=== PATIENT | female | born 1955 | race Caucasian/White ===

== ENCOUNTER 2016-06-11 08:00 | Outpatient (CLI) | payer OTHER ==
--- NOTE | 2016-06-11 09:24 | DIAGNOSTIC IMAGING REPORT ---
PROCEDURE: US ABDOMEN ULTRASOUND-COMPLETE INDICATION: HEPATITIS C, initial encounter TECHNIQUE: Hearn scale and color Doppler sonographic images of the abdomen were obtained. COMPARISON: None. FINDINGS: Enlarged liver measures 20.4 cm with increased echogenicity. No focal masses or ascites. Normal pancreas, spleen and gallbladder. Normal CBD measures 6.6 mm. Aorta and IVC are patent. Normal hepatopetal flow. Normal kidneys. Right kidney measures 10.5 cm and left kidney 10.2 cm. IMPRESSION: 1. Mild hepatomegaly with increased echogenicity consistent with a history of hepatitis C. Hepatic steatosis is another consideration 2. Normal gallbladder
== END 2016-06-11 23:00 ==
LOC: US SRH 08:00 → LAB SRH 08:00 → US SRH 23:00
DX: R16.0 Hepatomegaly, not elsewhere classified (principal); Z86.19 Personal history of other infectious and parasitic diseases
CPT/HCPCS: 90008; 90074

== ENCOUNTER 2016-07-25 12:35 | Outpatient (CLI) | payer OTHER | END 2016-07-25 23:00 | disposition home or self-care (01) | LOC: LAB SRH 12:35 | DX: Z21 Asymptomatic human immunodeficiency virus [HIV] infection status (principal) | CPT/HCPCS: 90004; 90074; 90100; 91227; 91228; 95059 ==

== ENCOUNTER 2016-09-14 20:09 | Emergency (ER) | payer OTHER ==
--- NOTE | 2016-09-14 21:21 | DIAGNOSTIC IMAGING REPORT ---
PROCEDURE: XR SACRUM AND COCCYX INDICATION: TRAUMA/INJURY TECHNIQUE: Three views. COMPARISON: None. FINDINGS: It suggest a buckle fracture the ventral cortex of the upper coccyx. The rest of the osseous structures are normal. IMPRESSION: 1. Findings suggest a buckle fracture of the ventral cortex of the upper coccyx. 2. Findings discussed with PAC. Albaro
--- NOTE | 2016-09-14 21:48 | ED CLINICAL REPORT ---
Clinical Report - Physicians/Mid Levels [facility] [address] [place] [address] 09/14/2016 20:10 Patient: NINFA GOYAL Time Seen: 2016. Arrived- By private vehicle. Historian- patient. HISTORY OF PRESENT ILLNESS Location of injuries- (tailbone). Chief Complaint: FALL. The injury occurred just prior to arrival. Occurred at home. Fell. No blow to the head, neck pain or loss of consciousness. (Patient prior to arrival fell onto a tree stump in her backyard playing ball with the dog. Denies any LOC or injury to her head. Denies prior injury to the tailbone. Patient reports pain to the area, applied ice prior to arrival..). REVIEW OF SYSTEMS No chest pain, abdominal pain or laceration. All systems otherwise negative, except as recorded above. PAST HISTORY Problems: Hepatitis. Breast Cancer. HIV Illness. Additional Surgeries: Mastectomy. Medications: Atripla Oral. Allergies: Penicillin. SOCIAL HISTORY No drug use. ADDITIONAL NOTES The nursing notes have been reviewed. PHYSICAL EXAM Vital Signs: 09/14/2016 20:21 BP: 141/89. HR: 76. RR: 18. O2 saturation: 99%. Appearance: Alert. No acute distress. ENT: No dental injury. Neck: Painless ROM. Non-tender. Posterior neck: No tenderness. CVS: Heart sounds normal. Pulses normal. Respiratory: Breath sounds normal. Chest nontender. No chest wall injury or decreased breath sounds. Abdomen: No visible injury. Soft. No abdominal tenderness. Back: No tenderness. ROM normal. Skin: Skin warm. Extremities: Pelvis. (tender sacrum with significant swelling overlying the r. gluteus with erythema/ no warmth. tendernss.). Right hip. No tenderness or laceration. Left hip. No tenderness or laceration. Right thigh. No tenderness or laceration. No left thigh complaints. No tenderness. LABS, X-RAYS, AND EKG Sacrum X-ray: (IMPRESSION: 1. Findings suggest a buckle fracture of the ventral cortex of the upper coccyx. 2. Findings discussed with KEAGAN Irvin. Electronically Final signed by:Oliver Arreola MD 09/14/2016 9:18:09 PM). PROGRESS AND PROCEDURES Course of Care: afebrile patient. With signs of possible coccyx fracture. Discussed this with the patient. Encouraged stool softener, use of donut or pillows or tile surrounding her seat for comfort. Patient to have increasing her fiber. Patient otherwise stable. No distress. No other injuries. Significant other here. Patient recently diagnosed with HIV as well as hepatitis. Patient to follow up outpatient. 09/14/2016 20:21 BP: 141/89. HR: 76. RR: 18. O2 saturation: 99%. Patient is stable. Physical exam findings are improved. Symptoms better. Disposition: Discharged. CLINICAL IMPRESSION Closed, nondisplaced coccyx fracture. Coccyx FX. INSTRUCTIONS Apply ice. Prescription Medications: oxycodone 5 mg po bid x 10 days. OTC Medications: Colace 100 mg capsules (available over the counter): take 1 capsule orally, three times daily and for 3 days, as needed for constipation, until symptoms improve. No refill. Substitution is permissible. Follow-up: Follow up with your doctor in three as needed. (Electronically signed by Irish Moreland P.A.-C 09/14/2016 22:00)
--- NOTE | 2016-09-14 21:48 | ED CLINICAL REPORT ---
Clinical Report - Physicians/Mid Levels [facility] [address] [place] [address] 09/14/2016 20:10 Patient: NINFA GOYAL Time Seen: 2016. Arrived- By private vehicle. Historian- patient. HISTORY OF PRESENT ILLNESS Location of injuries- (tailbone). Chief Complaint: FALL. The injury occurred just prior to arrival. Occurred at home. Fell. No blow to the head, neck pain or loss of consciousness. (Patient prior to arrival fell onto a tree stump in her backyard playing ball with the dog. Denies any LOC or injury to her head. Denies prior injury to the tailbone. Patient reports pain to the area, applied ice prior to arrival..). REVIEW OF SYSTEMS No chest pain, abdominal pain or laceration. All systems otherwise negative, except as recorded above. PAST HISTORY Problems: Hepatitis. Breast Cancer. HIV Illness. Additional Surgeries: Mastectomy. Medications: Atripla Oral. Allergies: Penicillin. SOCIAL HISTORY No drug use. ADDITIONAL NOTES The nursing notes have been reviewed. PHYSICAL EXAM Vital Signs: 09/14/2016 20:21 BP: 141/89. HR: 76. RR: 18. O2 saturation: 99%. Appearance: Alert. No acute distress. ENT: No dental injury. Neck: Painless ROM. Non-tender. Posterior neck: No tenderness. CVS: Heart sounds normal. Pulses normal. Respiratory: Breath sounds normal. Chest nontender. No chest wall injury or decreased breath sounds. Abdomen: No visible injury. Soft. No abdominal tenderness. Back: No tenderness. ROM normal. Skin: Skin warm. Extremities: Pelvis. (tender sacrum with significant swelling overlying the r. gluteus with erythema/ no warmth. tendernss.). Right hip. No tenderness or laceration. Left hip. No tenderness or laceration. Right thigh. No tenderness or laceration. No left thigh complaints. No tenderness. LABS, X-RAYS, AND EKG Sacrum X-ray: (IMPRESSION: 1. Findings suggest a buckle fracture of the ventral cortex of the upper coccyx. 2. Findings discussed with KEAGAN Irvin. Electronically Final signed by:Oliver Arreola MD 09/14/2016 9:18:09 PM). PROGRESS AND PROCEDURES Course of Care: afebrile patient. With signs of possible coccyx fracture. Discussed this with the patient. Encouraged stool softener, use of donut or pillows or tile surrounding her seat for comfort. Patient to have increasing her fiber. Patient otherwise stable. No distress. No other injuries. Significant other here. Patient recently diagnosed with HIV as well as hepatitis. Patient to follow up outpatient. 09/14/2016 20:21 BP: 141/89. HR: 76. RR: 18. O2 saturation: 99%. Patient is stable. Physical exam findings are improved. Symptoms better. Disposition: Discharged. CLINICAL IMPRESSION Closed, nondisplaced coccyx fracture. Coccyx FX. INSTRUCTIONS Apply ice. Prescription Medications: oxycodone 5 mg po bid x 10 days. OTC Medications: Colace 100 mg capsules (available over the counter): take 1 capsule orally, three times daily and for 3 days, as needed for constipation, until symptoms improve. No refill. Substitution is permissible. Follow-up: Follow up with your doctor in three as needed. (Electronically signed by Irish Moreland P.A.-C 09/14/2016 22:00)
--- NOTE | 2016-09-14 21:48 | ED ORDER SUMMARY ---
..... Patient: NINFA GOYAL OrderSheet [facility] VisitID: [id number] [address] [place] [address] 61y, F Registration Date/Time: 09/14/2016 ORDER SHEET Weight: 58.1 kg Allergies: Penicillin GENERAL ORDERS: Sacrum and Coccyx Urgent (20:32 09/14/2016 Leonard Tracy) (Ack 20:33 Presley) (20:57 Ron) Vitals (Temp) (21:53 09/14/2016 Leonard Tracy) (21:58 Judith) MEDICATION ORDERS: IV FLUIDS: ORDER SHEET NOTES: [Electronically signed by Irish Moreland P.A.-C (22:00 09/14/2016)] [Electronically signed by Laura Lund (22:02 09/14/2016)] [Electronically locked/signed by Laura Lund (22:02 09/14/2016)]
--- NOTE | 2016-09-14 21:48 | ED NURSING NOTES ---
Clinical Report - Nurses [place] [address] [place] [address] 09/14/2016 20:10 Patient: NINFA GOYAL TRIAGE Triage time 2014. Acuity: LEVEL 4. Chief Complaint: FALL while standing, onto the ground; tripped. Alert. No acute distress. --20:25 Laura Lund 20:21 09/14/16. BP: 141/89. HR: 76. RR: 18. O2 saturation: 99%. Pain level now 8/10. --20:25 Laura Lund. Weight: 58.1 kg. Height/Length: 62 inches. BMI: 23.5. --20:21 Laura Lund. Medications Atripla Oral. --20:23 Laura Lund. Allergies Penicillin. --20:23 Laura Lund. History Arrived by private vehicle. Historian: patient. Accompanied by family. Location of injuries: lower back. This occurred just prior to arrival. Occurred (backyard). ( c/o tailbone pain). No back injury. Treatment FLOOR CARE SPECIALIST: None. SOCIAL HX: Former smoker, end date 1991 (cigarette)- 1 pack per day. Occasional alcohol use. History of drug use: marijuana. --20:25 Laura Lund. PROBLEMS: Breast Cancer. HIV Illness. --20:24 Laura Lund Hepatitis. --20:43 Irish Moreland, P.A.-Carolyn The following entry was modified by Irish Moreland, P.A.-Carolyn, 20:43 <<STRICKEN ENTRY-- Hepatitis. --20:23 Laura Lund --END STRIKE>>. ADDITIONAL SURGERIES: Mastectomy. --20:24 Laura Lund. Interventions ID band on patient. To treatment room. --20:25 Laura Lund. PHYSICAL ASSESSMENT Ambulatory to room. GENERAL / NEURO / PSYCH: Alert. Oriented X 4. Appears in no acute distress. HEENT: Pupils equal, round and reactive to light. Head non-tender. RESPIRATORY: Respirations not labored. Chest nontender. Breath sounds within normal limits. CVS: Normal heart rate and rhythm. Pulses within normal limits. Capillary refill less than 2 seconds. GI / : Abdomen soft and nontender. EXTREMITIES: Extremities exhibit normal ROM. Neuro-vascular status intact to the extremity. SKIN: Skin intact. Skin is warm and dry. --20:26 Laura Lund. NURSING PROGRESS NOTES Patient gowned. Reassurance given. Two patient identifiers checked. Call light placed in reach. Side rails up. Bed placed in lowest position. Brakes of bed on. Patient ready for evaluation- chart flagged. --20:26 Laura Lund 21:58 09/14/16. Temp: 98.2 F. --21:58 Laura Lund. DISPOSITION / DISCHARGE Departure time: 2200. Condition at departure: unchanged and stable. No learning barriers present. Discharge instructions provided and reviewed with the patient. Reviewed medication(s). Patient verbalized understanding. Written instructions provided in Maori. The patient was discharged by the physician engineering inspection assistant. She was discharged home and accompanied by spouse. She left the Emergency Department ambulatory and via private vehicle. Spouse driving. --22:02 Laura Lund 22:01 09/14/16. BP: 119/73. HR: 78. RR: 16. O2 saturation: 94%. --22:02 Laura Lund. Locked/Released at 09/14/2016 22:02 by Laura Lund,
--- NOTE | 2016-09-14 21:48 | ED NURSING NOTES ---
Clinical Report - Nurses [facility] [place] [address] 09/14/2016 20:10 Patient: NINFA GOYAL TRIAGE Triage time 2014. Acuity: LEVEL 4. Chief Complaint: FALL while standing, onto the ground; tripped. Alert. No acute distress. --20:25 Laura Lund 20:21 09/14/16. BP: 141/89. HR: 76. RR: 18. O2 saturation: 99%. Pain level now 8/10. --20:25 Laura Lund. Weight: 58.1 kg. Height/Length: 62 inches. BMI: 23.5. --20:21 Laura Lund. Medications Atripla Oral. --20:23 Laura Lund. Allergies Penicillin. --20:23 Laura Lund. History Arrived by private vehicle. Historian: patient. Accompanied by family. Location of injuries: lower back. This occurred just prior to arrival. Occurred (backyard). ( c/o tailbone pain). No back injury. Treatment WATERWORKS EMPLOYEE: None. SOCIAL HX: Former smoker, end date 1991 (cigarette)- 1 pack per day. Occasional alcohol use. History of drug use: marijuana. --20:25 Laura Lund. PROBLEMS: Breast Cancer. HIV Illness. --20:24 Laura Lund Hepatitis. --20:43 Irish Moreland, P.A.-Carolyn The following entry was modified by Irish Moreland, P.A.-Carolyn, 20:43 <<STRICKEN ENTRY-- Hepatitis. --20:23 Laura Lund --END STRIKE>>. ADDITIONAL SURGERIES: Mastectomy. --20:24 Laura Lund. Interventions ID band on patient. To treatment room. --20:25 Laura Lund. PHYSICAL ASSESSMENT Ambulatory to room. GENERAL / NEURO / PSYCH: Alert. Oriented X 4. Appears in no acute distress. HEENT: Pupils equal, round and reactive to light. Head non-tender. RESPIRATORY: Respirations not labored. Chest nontender. Breath sounds within normal limits. CVS: Normal heart rate and rhythm. Pulses within normal limits. Capillary refill less than 2 seconds. GI / : Abdomen soft and nontender. EXTREMITIES: Extremities exhibit normal ROM. Neuro-vascular status intact to the extremity. SKIN: Skin intact. Skin is warm and dry. --20:26 Laura Lund. NURSING PROGRESS NOTES Patient gowned. Reassurance given. Two patient identifiers checked. Call light placed in reach. Side rails up. Bed placed in lowest position. Brakes of bed on. Patient ready for evaluation- chart flagged. --20:26 Laura Lund 21:58 09/14/16. Temp: 98.2 F. --21:58 Laura Lund. DISPOSITION / DISCHARGE Departure time: 2200. Condition at departure: unchanged and stable. No learning barriers present. Discharge instructions provided and reviewed with the patient. Reviewed medication(s). Patient verbalized understanding. Written instructions provided in Bengali. The patient was discharged by the physician assistant food service manager. She was discharged home and accompanied by spouse. She left the Emergency Department ambulatory and via private vehicle. Spouse driving. --22:02 Laura Lund 22:01 09/14/16. BP: 119/73. HR: 78. RR: 16. O2 saturation: 94%. --22:02 Laura Lund. Locked/Released at 09/14/2016 22:02 by Laura Lund,
--- NOTE | 2016-09-14 21:48 | ED ORDER SUMMARY ---
..... Patient: NINFA GOYAL OrderSheet [facility] VisitID: [id number] [address] [place] [address] 61y, F Registration Date/Time: 09/14/2016 ORDER SHEET Weight: 58.1 kg Allergies: Penicillin GENERAL ORDERS: Sacrum and Coccyx Urgent (20:32 09/14/2016 Leonard Tracy) (Ack 20:33 Presley) (20:57 Ron) Vitals (Temp) (21:53 09/14/2016 Leonard Tracy) (21:58 Judith) MEDICATION ORDERS: IV FLUIDS: ORDER SHEET NOTES: [Electronically signed by Irish Moreland P.A.-C (22:00 09/14/2016)] [Electronically signed by Laura Lund (22:02 09/14/2016)] [Electronically locked/signed by Laura Lund (22:02 09/14/2016)]
--- NOTE | 2016-09-14 22:02 | ED MED RECONCILIATION SUMMARY ---
Patient: NINFA GOYAL Medication Reconciliation Report [facility] VisitID: [id number] [address] [place] [address] 61y, F Registration Date/Time: 09/14/2016 Weight: 58.1 kg Height/Length: 62 in. BMI: 23.5 ALLERGIES: Penicillin The patient's Home Medications are listed below: THE FOLLOWING MEDICATIONS NEED TO BE RECONCILED: Atripla Oral The source(s) of the original Home Medication information: Not obtained. The following Medications were given to the patient in the Emergency Department: None. The following Medications were prescribed to the patient: oxycodone 5 mg po bid x 10 days. -- Irish Moreland, P.A.-C Colace 100 mg capsules (available over the counter): take 1 capsule orally, three times daily and for 3 days, as needed for constipation, until symptoms improve. No refill. Substitution is permissible. -- Irish Moreland, P.A.-C
--- NOTE | 2016-09-14 22:02 | ED MED RECONCILIATION SUMMARY ---
Patient: NINFA GOYAL Medication Reconciliation Report [facility] VisitID: [id number] [address] [place] [address] 61y, F Registration Date/Time: 09/14/2016 Weight: 58.1 kg Height/Length: 62 in. BMI: 23.5 ALLERGIES: Penicillin The patient's Home Medications are listed below: THE FOLLOWING MEDICATIONS NEED TO BE RECONCILED: Atripla Oral The source(s) of the original Home Medication information: Not obtained. The following Medications were given to the patient in the Emergency Department: None. The following Medications were prescribed to the patient: oxycodone 5 mg po bid x 10 days. -- Irish Moreland, P.A.-C Colace 100 mg capsules (available over the counter): take 1 capsule orally, three times daily and for 3 days, as needed for constipation, until symptoms improve. No refill. Substitution is permissible. -- Irish Moreland, P.A.-C
--- NOTE | 2016-09-14 22:02 | ED DISCHARGE INSTRUCTIONS ---
Patient: NINFA GOYAL General Instructions [facility] VisitID: [id number] [place] [address] 61y, F Registration Date/Time: 09/14/2016 Closed, nondisplaced coccyx fracture. Coccyx FX. INSTRUCTIONS Apply ice. Prescription Medications: oxycodone 5 mg po bid x 10 days. OTC Medications: Colace 100 mg capsules (available over the counter): take 1 capsule orally, three times daily and for 3 days, as needed for constipation, until symptoms improve. No refill. Substitution is permissible. Follow-up: Follow up with your doctor in three as needed. ADDITIONAL INFORMATION Fracture:Coccyx The coccyx (tail bone) is located at the lower end of your spine. It is possible to fracture this bone when you fall and land in a seated position. This injury takes about four weeks to heal. Until then, it will be painful to sit and to have bowel movements. Home Care: Lying down or standing will be more comfortable than sitting. When you must sit, use aDoughnutpillow (available at most pharmacies or surgical and orthopedic supply stores). You can also make a doughnut pillow using a 4 inch foam pad with the center cut out. Apply an ice pack (ice cubes in a plastic bag, wrapped in a towel) over the injured area for 20 minutes every 1-2 hours the first day. Continue with ice packs 3-4 times a day for the next two days, then as needed for the relief of pain and swelling. You may use acetaminophen (Tylenol) or ibuprofen (Motrin, Advil) to control pain, unless another pain medicine was prescribed. [NOTE: If you have chronic liver or kidney disease or ever had a stomach ulcer or GI bleeding, talk with your doctor before using these medicines.] Keep your stools soft to avoid pain when having a bowel movement. Unless another medicine was prescribed, try the following: If You Are Constipated: You may use bepw-zbh-crlfoxx laxatives such as Milk of Magnesia (mild acting) or, Dulcolax (if stronger action is needed). If You Are Not Constipated use ffpj-wdd-fbwqleu Colace (docusate). This will soften the stools. Adding fiber to your diet or using supplements such as Metamucil is a extermination inspector solution to keep your stools soft and prevent constipation. Follow Up with your doctor or this facility if your symptoms do not improve after one week. [NOTE: A radiologist will review any X-rays that were taken. We will notify you of any new findings that may affect your care.] Get Prompt Medical Attention if any of the following occur: Pain becomes worse or spreads to your legs Weakness or numbness in one or both legs Loss of control over bowels or bladder, or numbness in the groin area Docusate Sodium Oral tablet What is this medicine? DOCUSATE (doc CUE sayt) is stool softener. It helps prevent constipation and straining or discomfort associated with hard or dry stools. How should I use this medicine? Take this medicine by mouth with a glass of water. Follow the directions on the label. Take your doses at regular intervals. Do not take your medicine more often than directed. Talk to your firearms model maker regarding the use of this medicine in children. While this medicine may be prescribed for children as young as 2 years for selected conditions, precautions do apply. What side effects may I notice from receiving this medicine? Side effects that you should report to your doctor or health chiropractic care as soon as possible: allergic reactions like skin rash, itching or hives, swelling of the face, lips, or tongue Side effects that usually do not require medical attention (report to your doctor or health chiropractic care if they continue or are bothersome): diarrhea stomach cramps throat irritation What may interact with this medicine? mineral oil What if I miss a dose? If you miss a dose, take it as soon as you can. If it is almost time for your next dose, take only that dose. Do not take double or extra doses. Where should I keep my medicine? Keep out of the reach of children. Store at room temperature between 15 and 30 degrees C (59 and 86 degrees F). Throw away any unused medicine after the expiration date. What should I tell my health care provider before I take this medicine? They need to know if you have any of these conditions: nausea or vomiting severe constipation stomach pain sudden change in bowel habit lasting more than 2 weeks an unusual or allergic reaction to docusate, other medicines, foods, dyes, or preservatives or trying to get breast-feeding What should I watch for while using this medicine? Do not use for more than one week without advice from your doctor or health chiropractic care. If your constipation returns, check with your doctor or health chiropractic care. Drink plenty of water while taking this medicine. Drinking water helps decrease constipation. Stop using this medicine and contact your doctor or health chiropractic care if you experience any rectal bleeding or do not have a bowel movement after use. These could be signs of a more serious condition. You have been given the following additional information: Fracture, Coccyx Docusate Sodium Oral tablet (Electronically signed by Irish Moreland P.A.-C 09/14/2016 22:00)
--- NOTE | 2016-09-14 22:02 | ED MAR SUMMARY ---
..... Medication Administration Record [facility] [address] [place], [place] [id number] Patient: NINFA GOYAL Simeon Visit ID: [id number] 61y, F Weight: 58.1 kg Height/Length: 62 in BMI: 23.5 ALLERGIES: Penicillin
--- NOTE | 2016-09-14 22:02 | ED MAR SUMMARY ---
..... Medication Administration Record [facility] [address] [place], [place] [id number] Patient: NINFA GOYAL Simeon Visit ID: [id number] 61y, F Weight: 58.1 kg Height/Length: 62 in BMI: 23.5 ALLERGIES: Penicillin
--- NOTE | 2016-09-14 22:02 | ED DISCHARGE INSTRUCTIONS ---
Patient: NINFA GOYAL General Instructions [facility] VisitID: [id number] [place] [address] 61y, F Registration Date/Time: 09/14/2016 Closed, nondisplaced coccyx fracture. Coccyx FX. INSTRUCTIONS Apply ice. Prescription Medications: oxycodone 5 mg po bid x 10 days. OTC Medications: Colace 100 mg capsules (available over the counter): take 1 capsule orally, three times daily and for 3 days, as needed for constipation, until symptoms improve. No refill. Substitution is permissible. Follow-up: Follow up with your doctor in three as needed. ADDITIONAL INFORMATION Fracture:Coccyx The coccyx (tail bone) is located at the lower end of your spine. It is possible to fracture this bone when you fall and land in a seated position. This injury takes about four weeks to heal. Until then, it will be painful to sit and to have bowel movements. Home Care: Lying down or standing will be more comfortable than sitting. When you must sit, use aDoughnutpillow (available at most pharmacies or surgical and orthopedic supply stores). You can also make a doughnut pillow using a 4 inch foam pad with the center cut out. Apply an ice pack (ice cubes in a plastic bag, wrapped in a towel) over the injured area for 20 minutes every 1-2 hours the first day. Continue with ice packs 3-4 times a day for the next two days, then as needed for the relief of pain and swelling. You may use acetaminophen (Tylenol) or ibuprofen (Motrin, Advil) to control pain, unless another pain medicine was prescribed. [NOTE: If you have chronic liver or kidney disease or ever had a stomach ulcer or GI bleeding, talk with your doctor before using these medicines.] Keep your stools soft to avoid pain when having a bowel movement. Unless another medicine was prescribed, try the following: If You Are Constipated: You may use mhqo-oes-ygtknii laxatives such as Milk of Magnesia (mild acting) or, Dulcolax (if stronger action is needed). If You Are Not Constipated use gehg-cqf-lonppos Colace (docusate). This will soften the stools. Adding fiber to your diet or using supplements such as Metamucil is a joint terminal attack controller solution to keep your stools soft and prevent constipation. Follow Up with your doctor or this facility if your symptoms do not improve after one week. [NOTE: A radiologist will review any X-rays that were taken. We will notify you of any new findings that may affect your care.] Get Prompt Medical Attention if any of the following occur: Pain becomes worse or spreads to your legs Weakness or numbness in one or both legs Loss of control over bowels or bladder, or numbness in the groin area Docusate Sodium Oral tablet What is this medicine? DOCUSATE (doc CUE sayt) is stool softener. It helps prevent constipation and straining or discomfort associated with hard or dry stools. How should I use this medicine? Take this medicine by mouth with a glass of water. Follow the directions on the label. Take your doses at regular intervals. Do not take your medicine more often than directed. Talk to your c java developer regarding the use of this medicine in children. While this medicine may be prescribed for children as young as 2 years for selected conditions, precautions do apply. What side effects may I notice from receiving this medicine? Side effects that you should report to your doctor or health child caregiver as soon as possible: allergic reactions like skin rash, itching or hives, swelling of the face, lips, or tongue Side effects that usually do not require medical attention (report to your doctor or health child caregiver if they continue or are bothersome): diarrhea stomach cramps throat irritation What may interact with this medicine? mineral oil What if I miss a dose? If you miss a dose, take it as soon as you can. If it is almost time for your next dose, take only that dose. Do not take double or extra doses. Where should I keep my medicine? Keep out of the reach of children. Store at room temperature between 15 and 30 degrees C (59 and 86 degrees F). Throw away any unused medicine after the expiration date. What should I tell my health care provider before I take this medicine? They need to know if you have any of these conditions: nausea or vomiting severe constipation stomach pain sudden change in bowel habit lasting more than 2 weeks an unusual or allergic reaction to docusate, other medicines, foods, dyes, or preservatives or trying to get breast-feeding What should I watch for while using this medicine? Do not use for more than one week without advice from your doctor or health child caregiver. If your constipation returns, check with your doctor or health child caregiver. Drink plenty of water while taking this medicine. Drinking water helps decrease constipation. Stop using this medicine and contact your doctor or health child caregiver if you experience any rectal bleeding or do not have a bowel movement after use. These could be signs of a more serious condition. You have been given the following additional information: Fracture, Coccyx Docusate Sodium Oral tablet (Electronically signed by Irish Moreland P.A.-C 09/14/2016 22:00)
== END 2016-09-14 22:00 | disposition home or self-care (01) ==
LOC: ED SRH 20:09
DX: S32.2XXA Fracture of coccyx, initial encounter for closed fracture (principal); W01.198A Fall on same level from slipping, tripping and stumbling with subsequent striking against other object, initial encounter; Y93.89 Activity, other specified; Y92.009 Unspecified place in unspecified non-institutional (private) residence as the place of occurrence of the external cause; Y99.9 Unspecified external cause status